=== PATIENT | female | born 1945 | race Caucasian/White ===

== ENCOUNTER 2016-06-30 21:36 | Emergency (ER) | payer MEDICARE, BC ==
[2016-06-30 22:40] VITALS: RESP 18; TEMP 98.1
[2016-06-30 23:19] VITALS: BP 130/72; PULSE 81; O2SAT 97
== END 2016-06-30 23:12 | disposition home or self-care (01) | DRG 563 ==
LOC: ED 21:36
DX: S93.602A Unspecified sprain of left foot, initial encounter (principal)
CPT/HCPCS: 73630; 99283

== ENCOUNTER 2016-10-23 14:10 | Outpatient (CLI) | payer MEDICARE, BC ==
[2016-06-30 23:19] VITALS: O2SAT 97
== END 2016-10-23 14:11 | disposition home or self-care (01) | DRG 554 ==
LOC: CONVCARE 14:10
PROVIDERS: ATTEND Orthopaedic Surgery
DX: M17.12 Unilateral primary osteoarthritis, left knee (principal); M70.62 Trochanteric bursitis, left hip
CPT/HCPCS: 72170; 73501; 73564